=== PATIENT | female | born 1960 | race Caucasian/White ===

== ENCOUNTER → 2018-06-05 | Outpatient (CLI) | payer OTHER | LOC: FIMAGING 15:49 | PROVIDERS: ATTEND Orthopaedic Surgery | DX: Z01.818 Encounter for other preprocedural examination (principal); M17.11 Unilateral primary osteoarthritis, right knee ==

== ENCOUNTER → 2018-06-12 | Outpatient (CLI) | payer OTHER | LOC: FIMAGING 13:43 | PROVIDERS: ATTEND Orthopaedic Surgery | DX: Z01.818 Encounter for other preprocedural examination (principal); M17.11 Unilateral primary osteoarthritis, right knee ==

== ENCOUNTER 2018-06-16 06:11 | Inpatient (IN) | payer OTHER ==
[~2018-06-16 06:11] MED LIST: VANCOMYCIN 1.5 GM in NS 250 ML IV ONE
--- NOTE | 2018-06-16 06:19 | PDHPUP ---
History & Physical Update H&P update statement: This history and physical update is based on an assessment of the patient which was completed after admission or registration (within 24 hours), but prior to the surgery/procedure. H&P update: no change in patient's condition since H&P completed
--- NOTE | 2018-06-16 06:20 | PDIAF ---
- Diagnosis Diagnosis: right knee djd Code Status: Full Code - Medication Management Discharge Medications: electronically signed and located in the Home Medication List. - Orders Services needed: Home Care, Physical Therapy Home Care Face to Face: I certify that this patient was under my care and that I had the required lgdw-pj-vrzj encounter meeting the encounter requirements on the discharge day. My findings support the fact that the patient is homebound as defined in Home Care Face to Face Continued: CMS Chapter 7 Medicare Benefits Manual 30.1.1 , The condition of the patient is such that there exists a normal inability to leave home and consequently, leaving home would require a considerable and taxing effort. Diet Recommendation: no restrictions on diet Diet Texture: Regular Texture Diet Additional Instructions: TOTAL JOINT ARTHROPLASTY DISCHARGE INSTRUCTIONS 1. Your surgeon follows the [facility] protocol for reducing your risk of DVT (blood clots) following surgery. Medication will be ordered to prevent blood clots. A sudden increase in calf pain and/or swelling could indicate a blood clot in your leg. If this occurs, please call your surgeon or his/her facility assistant. An ultrasound of the leg may be necessary to diagnose a blood clot. If you have conditions that make you a higher risk for blood clots, your surgeon may use more aggressive ways to prevent them. Notify your surgeon if you think you are a high risk for blood clots. 2. Wear your white surgical stockings (AMBERLY hose) for 2 weeks. This decreases your swelling and may help prevent blood clots. It is ok to remove AMBERLY hose at night time to give your legs a break. 3. Swelling and bruising in the surgical leg is common. If you feel that it is excessive, please notify your surgeon. 4. Elevate your surgical leg with the ankle above the hip several times every day. Please keep the leg straight when you elevate by putting pillows under your foot. Do not put pillows under your knee. This will make being able to fully straighten more difficult. This is uncomfortable, but try to do it as much as possible. 5. For total knee replacements use compressive wrap on your knee for 3-5 days after surgery, then you can discontinue it. 6. Use a walker or crutches for 1-2 weeks. Progress your weight-bearing as tolerated. You may start to use a cane when you feel stable and safe. 7. You will receive physical therapy instructions in the hospital. Continue those exercises at home. There are additional exercises in the total joint booklet you were given before surgery. Outpatient physical therapy will begin 7- 10 days after surgery. Please schedule this in advance. 8. Use ice on your knee at least 3-5 times every day for 30 minutes. This helps reduce pain and swelling. Also use it at night before falling asleep. 9. Leave your surgical dressing in place for 2 weeks. Your dressing is water resistant, but not waterproof. Cover it with Saran Wrap or Ojyxc-g-Gqvs before showering. You may shower as soon as you feel safe entering a shower. If you notice bleeding from your incision 2 or 3 days after surgery, please notify your surgeon. 10. Due to narcotics, decreased activity and altered diet, most patients experience constipation after surgery. Use iqry-nsw-korekah stool softeners while you are on narcotics. 11. You may drive a car when you are comfortable bearing weight, have good muscular control of your leg and are off narcotics. This usually occurs 2-4 weeks after surgery, depending on which leg was operated on. 12. If there are questions not addressed here, please refer the [facility] book given for more information. If you still have questions, please contact your surgeon s office. 13. If you have a life-threatening emergency, please call 911 and go to the emergency room immediately. For non-life threatening emergencies, please call your physicians office for advice before going to the emergency room. - Follow Up Care Current Providers and Referrals: Doctor Not,On Staff, [Primary Care Provider] - Rodri Yoder MD [Medical Doctor] -
[2018-06-16] MEDS ORDERED: FAMOTIDINE 20 MG TAB PO ONE (06:48)
[2018-06-16] MEDS ORDERED: ACETAMINOPHEN 325 MG TAB PO ONE (06:48)
[2018-06-16] MEDS ORDERED: LR 1,000 ML IV ONE (06:50)
[2018-06-16] MEDS ORDERED: THROMBIN (BOVINE) 5,000 UNIT VIAL TP ONE (07:31)
[2018-06-16] MEDS ORDERED: CALCIUM CHLORIDE 1 GM/10 ML INJ ONE (07:31)
[2018-06-16] MEDS ORDERED: ceFAZolin 1 GM/5 ML SYR ONE (07:32)
[2018-06-16] MEDS ORDERED: MIDAZOLAM 2 MG/2 ML VIAL IVP ONE (08:17)
--- NOTE | 2018-06-16 08:17 | PDANEPAE ---
ANE Past Medical History - Cardiovascular History Hx Hypertension: No Hx Arrhythmias: No Hx Chest Pain: No Hx Coronary Artery / Peripheral Vascular Disease: No Hx CHF / Valvular Disease: No Hx Palpitations: No - Pulmonary History Hx COPD: No Hx Asthma/Reactive Airway Disease: No Hx Recent Upper Respiratory Infection: No Hx Oxygen in Use at Home: No Hx Sleep Apnea: No Sleep Apnea Screening Result - Last Documented: Negative - Neurologic History Hx Cerebrovascular Accident: No Hx Seizures: No Hx Dementia: No - Endocrine History Hx Diabetes: No Hypothyroid: No Hyperthyroid: No Obesity: severe - Renal History Hx Renal Disorders: No - Liver History Hx Hepatic Disorders: No - Neurological & Psychiatric Hx Hx Neurological and Psychiatric Disorders: No - Cancer History Hx Cancer: No - Congenital Disorder History Hx Congenital Disorders: No - GI History Hx Gastrointestinal Disorders: No - Chronic Pain History Chronic Pain: Yes (R KNEE) - Surgical History Prior Surgeries: TONSILLECTOMY ANE Review of Systems Review of Systems: - Exercise capacity METS (RN): 4 METS ANE Patient History - Allergies Allergies/Adverse Reactions: albuterol Allergy (Verified 05/14/18 11:44) heart races Penicillins Allergy (Verified 05/14/18 11:44) Other-Enter Comments prednisone Allergy (Verified 05/14/18 11:44) heart race - Home Medications Home Medications: Ascorbic Acid [Vitamin C 500 mg (*)] 500 mg PO DAILY 05/14/18 [Last Taken 1 Week Ago ~06/09/18] Aspirin [Aspirin 325 mg (*)] 325 mg PO DAILY PRN 05/14/18 [Last Taken 1 Week Ago ~06/09/18] Cholecalciferol Vit D3 [Vitamin D3 (*)] 1,000 units PO DAILY 05/14/18 [Last Taken 1 Week Ago ~06/09/18] Herbals/Supplements -Info Only 1 ea PO DAILY 05/14/18 [Last Taken 1 Week Ago ~] Thiamine HCl [Vitamin B-1 100mg (OTC)] 100 mg PO DAILY 05/14/18 [Last Taken 1 Week Ago ~06/09/18] - NPO status NPO Since - Liquids (Date): 06/16/18 NPO Since - Liquids (Time): 05:00 NPO Since - Solids (Date): 06/15/18 NPO Since - Solids (Time): 17:00 - Smoking Hx Smoking Status: Never smoked - Family Anes Hx Family Hx Anesthesia Complications: NONE ANE Labs/Vital Signs - Vital Signs Blood Pressure: 116/89 Heart Rate: 85 Respiratory Rate: 18 O2 Sat (%): 94 Height: 160.02 cm Weight: 99.79 kg ANE Physical Exam - Airway Neck exam: decreased ROM Mallampati Score: Class 2 Mouth exam: normal dental/mouth exam - Pulmonary Pulmonary: no respiratory distress - Cardiovascular Cardiovascular: regular rate and rhythym - ASA Status ASA Status: II ANE Anesthesia Plan Anesthesia Plan: spinal Regional Anesthesia: adductor canal FNB
[2018-06-16] MEDS ORDERED: BUPIVACAINE/DEXTROSE 7.5MG/ML 2 ML SPINAL AMP SP ONE (08:30)
[2018-06-16] MEDS ORDERED: ROPIVACAINE 0.2% 80 MG, EPINEPHrine 0.2 MG, KETOROLAC TROMETHAMINE 30 MG, morphINE 10 M... IU ONE (08:30)
[2018-06-16] MEDS ORDERED: fentaNYL 100 MCG/2 ML INJ ONE (08:30)
[2018-06-16] MEDS ORDERED: TRANEXAMIC ACID 2,000 MG in NS 100 ML IV ONE (08:30)
[2018-06-16] MEDS ORDERED: TRANEXAMIC ACID 1,000 MG in NS 100 ML IV ONE (08:30)
[2018-06-16] MEDS ORDERED: PROPOFOL/EMULSION 500 MG/50 ML BOTTLE IV ONE (08:30)
[2018-06-16] MEDS ORDERED: LIDOCAINE 2% 5 ML SDV ONE (08:30)
[2018-06-16] MEDS ORDERED: VANCOMYCIN PHARMACY TO DOSE MISC ONE (08:30)
[2018-06-16] MEDS ORDERED: PROPOFOL 200 MG/20 ML VIAL ONE (09:14)
[2018-06-16] MEDS ORDERED: MIDAZOLAM 2 MG/2 ML VIAL ONE (09:14)
[2018-06-16] MEDS ORDERED: PROMETHAZINE HCL 25 MG/ML INJ IVP PRN (09:52)
[2018-06-16] MEDS ORDERED: diphenhydrAMINE 25 MG CAP PO PRN (09:52)
[2018-06-16] MEDS ORDERED: LACTULOSE 20 GM/30 ML UDCUP PO PRN (09:52)
[2018-06-16] MEDS ORDERED: PROMETHAZINE HCL 25 MG SUPPR PR PRN (09:52)
[2018-06-16] MEDS ORDERED: POLYETHYLENE GLYCOL 3350 17 GM PKT PO PRN (09:52)
[2018-06-16] MEDS ORDERED: CYCLOBENZAPRINE 10 MG TAB PO PRN (09:52)
[2018-06-16] MEDS ORDERED: TEMAZEPAM 15 MG CAP PO PRN (09:52)
[2018-06-16] MEDS ORDERED: DIPHENOXYLATE/ATROPINE LOMOTIL 1 TAB PO PRN (09:52)
[2018-06-16] MEDS ORDERED: METOCLOPRAMIDE 10 MG/2 ML VIAL IVP PRN (09:52)
[2018-06-16] MEDS ORDERED: ONDANSETRON DISINTEGRATING 4 MG TAB PO PRN (09:52)
[2018-06-16] MEDS ORDERED: MAGNESIUM HYDROXIDE 30 ML UDCUP PO PRN (09:52)
[2018-06-16] MEDS ORDERED: BISACODYL 10 MG SUPP PR PRN (09:52)
[2018-06-16] MEDS ORDERED: ONDANSETRON 4 MG/2 ML VIAL IVP PRN ×2 (09:52→09:53)
[2018-06-16] MEDS ORDERED: fentaNYL 100 MCG/2 ML INJ IVP PRN (09:53)
[2018-06-16] MEDS ORDERED: PHENYLEPHRINE HCL 100 MCG/ML SYR IVP PRN (09:53)
[2018-06-16] MEDS ORDERED: LR 500 ML IV PRN (09:53)
[2018-06-16] MEDS ORDERED: NALOXONE HCL 0.4 MG/ML INJ IVP PRN (09:53)
--- NOTE | 2018-06-16 09:54 | POSTOPPROG ---
Post Op Note Date of Operation: 06/16/18 Surgeon: Rodri Yoder Ocean Forwarder: juan Anesthesiologist: juanjose Anesthesia: Spinal Pre-op Diagnosis: right knee djd Post-op Diagnosis: same Indication: same Procedure: right tka Inf/Abcess present in the surg proc area at time of surgery?: No Depth: Deep Incisional (Fascial) EBL: 50-100
[2018-06-16] MEDS ORDERED: LR 1,000 ML IV SCH (10:00)
--- NOTE | 2018-06-16 10:32 | POSTANESTH ---
Post Anesthetic Evaluation Cardiovascular Status: Normal, Stable Respiratory Status: Normal, Stable Level of Consciousness/Mental Status: Can Participate in Eval Pain Control: Adequate, Prn Tx Ordered Nausea/Vomiting Control: Adequate, Prn Tx Ordered Complications Possibly Related to Anesthesia: None Noted
--- NOTE | 2018-06-16 10:50 | PDMN ---
Medical Necessity Medical [place] [facility] [place] OP: R TKA -- ROSHAN FOR CPT 63418 DONE INPT
[2018-06-16] MEDS: ACETAMINOPHEN 325 MG TAB PO SCH ×3 (13:52→23:37)
[2018-06-16] MEDS: TRANEXAMIC ACID 650 MG TAB PO SCH ×2 (15:06→21:46)
[2018-06-16] MEDS: oxyCODONE IR 5 MG TAB PO PRN ×3 (17:12→23:47)
[2018-06-16] MEDS ORDERED: VANCOMYCIN 1.5 GM in NS 250 ML IV ONE (19:30)
[2018-06-16] MEDS: FAMOTIDINE 20 MG TAB PO SCH (20:08)
[2018-06-16] MEDS: SENNOSIDES/DOCUSATE SODIUM TAB PO SCH (20:08)
[2018-06-16] MEDS: ASPIRIN 325 MG TAB PO SCH (21:46)
[2018-06-17] MEDS: ACETAMINOPHEN 325 MG TAB PO SCH ×2 (05:56→12:04)
[2018-06-17] MEDS: TRANEXAMIC ACID 650 MG TAB PO SCH (05:57)
[2018-06-17] MEDS: oxyCODONE IR 5 MG TAB PO PRN ×2 (06:09→12:04)
--- NOTE | 2018-06-17 07:08 | SOAPPROG ---
SOAP Progress Note Assessment/Plan: Assessment: s/p right tka Plan: stable d/c home once cleared by pt ice prn dvt precautions f/u at two weeks 06/17/18 07:06 Subjective: no cp or sob no nausea Objective: Vital Signs Temp Pulse Resp BP Pulse Ox 36.8 C 68 17 124/95 H 96 06/17/18 04:00 06/17/18 04:00 06/17/18 04:00 06/17/18 04:00 06/17/18 04:00 Laboratory Results 06/17/18 04:26 06/16/18 12:19 06/16/18 06/17/18 06/18/18 05:59 05:59 05:59 Intake Total 1365 Output Total 1550 Balance -185 dressing intact intact pf,df, ehl toes warm and pink neg homans caroline xrays stable anatomic alignemrnet ICD10 Worksheet Patient Problems: Problems Problem Status Onset Arthritis of knee Acute - ICD10 Problem Qualifiers (1) Arthritis of knee
--- NOTE | 2018-06-17 07:20 | PDIAF ---
- Diagnosis Diagnosis: right knee djd Code Status: Full Code - Medication Management Discharge Medications: electronically signed and located in the Home Medication List. - Orders Services needed: Home Care, Physical Therapy Home Care Face to Face: I certify that this patient was under my care and that I had the required ihac-yp-ptca encounter meeting the encounter requirements on the discharge day. My findings support the fact that the patient is homebound as defined in Home Care Face to Face Continued: CMS Chapter 7 Medicare Benefits Manual 30.1.1 , The condition of the patient is such that there exists a normal inability to leave home and consequently, leaving home would require a considerable and taxing effort. Diet Recommendation: no restrictions on diet Diet Texture: Regular Texture Diet Additional Instructions: TOTAL JOINT ARTHROPLASTY DISCHARGE INSTRUCTIONS 1. [facility] surgeon [facility] protocol for reducing your risk of DVT (blood clots) following surgery. Medication will be ordered to prevent blood clots. A sudden increase in calf pain and/or swelling could indicate a blood clot in your leg. If this occurs, please call your surgeon or his/her outreach assistant. An ultrasound of the leg may be necessary to diagnose a blood clot. If you have conditions that make you a higher risk for blood clots, your surgeon may use more aggressive ways to prevent them. Notify your surgeon if you think you are a high risk for blood clots. 2. Wear your white surgical stockings (AMBERLY hose) for 2 weeks. This decreases your swelling and may help prevent blood clots. It is ok to remove AMBERLY hose at night time to give your legs a break. 3. Swelling and bruising in the surgical leg is common. If you feel that it is excessive, please notify your surgeon. 4. Elevate your surgical leg with the ankle above the hip several times every day. Please keep the leg straight when you elevate by putting pillows under your foot. Do not put pillows under your knee. This will make being able to fully straighten more difficult. This is uncomfortable, but try to do it as much as possible. 5. For total knee replacements use compressive wrap on your knee for 3-5 days after surgery, then you can discontinue it. 6. Use a walker or crutches for 1-2 weeks. Progress your weight-bearing as tolerated. You may start to use a cane when you feel stable and safe. 7. You will receive physical therapy instructions in the hospital. Continue those exercises at home. There are additional exercises in the total joint booklet you were given before surgery. Outpatient physical therapy will begin 7- 10 days after surgery. Please schedule this in advance. 8. Use ice on your knee at least 3-5 times every day for 30 minutes. This helps reduce pain and swelling. Also use it at night before falling asleep. 9. Leave your surgical dressing in place for 2 weeks. Your dressing is water resistant, but not waterproof. Cover it with Saran Wrap or Rchfd-y-Fsua before showering. You may shower as soon as you feel safe entering a shower. If you notice bleeding from your incision 2 or 3 days after surgery, please notify your surgeon. 10. Due to narcotics, decreased activity and altered diet, most patients experience constipation after surgery. Use mqan-szi-mbzxwql stool softeners while you are on narcotics. 11. You may drive a car when you are comfortable bearing weight, have good muscular control of your leg and are off narcotics. This usually occurs 2-4 weeks after surgery, depending on which leg was operated on. 12. If there are questions not addressed here, please refer the [facility] book given for more information. If you still have questions, please contact your surgeon s office. 13. If you have a life-threatening emergency, please call 911 and go to the emergency room immediately. For non-life threatening emergencies, please call your physicians office for advice before going to the emergency room. - Follow Up Care Current Providers and Referrals: Doctor Not,On Staff, [Primary Care Provider] - Rodri Yoder MD [Medical Doctor] -
[2018-06-17 08:27] VITALS: BP 118/83
[2018-06-17] MEDS: FAMOTIDINE 20 MG TAB PO SCH (08:30)
[2018-06-17] MEDS: SENNOSIDES/DOCUSATE SODIUM TAB PO SCH (08:30)
[2018-06-17] MEDS: ASPIRIN 325 MG TAB PO SCH (08:30)
--- NOTE | 2018-06-17 10:30 | ASMTLACE ---
LACE Length of stay for Answers: 2 days current admission Acuity / Level of Answers: Yes Care: Did the patient have an inpatient admission? Comorbidities - select Answers: Opioid dependence all that apply / Chronic pain # of Emergency department Answers: 0 visits in the last 6 months Score: 9 Date Signed: 06/17/2018 10:29 AM Electronically Signed By:LUIS Moore
--- NOTE | 2018-06-17 10:32 | ASMTCMCOM ---
CM Note CM Note Notes: Pt had planned OA of knee. Pt medically stable for d/c with [facility] PT. Orders to be obtained via [employer]. Pt address/phone verified. Pt has support of . Date Signed: 06/17/2018 10:31 AM Electronically Signed By:LUIS Moore
--- NOTE | 2018-06-17 11:10 | GOP ---
DATE OF OPERATION: 06/16/2018 SURGEON: Rodri Yoder MD PREOPERATIVE DIAGNOSIS: Right knee degenerative joint disease. POSTOPERATIVE DIAGNOSIS: Right knee degenerative joint disease. PROCEDURE PERFORMED: Right total knee arthroplasty. FINDINGS: SPECIMENS: Sent to Pathology, the bony cuts. INDICATIONS: This patient is a 58-year-old woman with end-stage arthritis to her right knee. Clinic al and radiographic features are consistent with this. She has failed conservative measures. I have recommended total knee replacement. She understood the risks, benefits, alternatives, and wished to proceed. The consent was signed and placed in the patient's chart. DESCRIPTION OF PROCEDURE: Patient was identified in the preanesthesia area. The right knee clearly demarcated as the operative site with indelible marker. She was given 2 g of Ancef intravenously en route to the operative suite. In the OR, spinal anesthetic was placed. Attention was turned to the right knee, which was sterilely prepped and draped in usual fashion. A tourniquet was applied to the upper thigh. Appropriate time-out procedure was carried out. The limb was exsanguinated with an Es march bandage, and tourniquet inflated to 275 mmHg. A standard anterior midline incision was made. Thick subcutaneous flaps were elevated, followed by m edial parapatellar arthrotomy. Subperiosteal elevation was carried out to the mid coronal plane and retractors were placed protecting the medial and lateral collateral structures. The knee demonstrate d tricompartmental arthritis. Two pins were then placed from the medial to lateral femur. Femoral a nd tibial checkpoints were then placed. Tibial pins were then placed in a percutaneous incision over the mid tibia. The femoral and tibial reference arrays were affixed. All bony landmarks were enter ed in the computer in standard fashion. The marginal osteophytes were sharply excised. Using the MA KOplasty software, the knee was balanced through the flexion-extension arc. Resections were made for a size 4 tibia, size 4 femur. Trial reduction was carried out over a 4 x 9 mm polyethylene spacer. This allowed full extension of the knee without hyperextension. No instability to varus or valgus s tress and flexion to 120 degrees of flexion. The trial components were withdrawn. The tibial and fe moral components were press-fit in standard position and technique. The 9 mm polyethylene spacer was placed and confirmed to be fully seated. The knee was brought into extension. The patella was ever jeanette, cut in a freehand cutting technique. Drill holes were made for a size 32 mm patella. The ferreira la was then press-fit in position. The knee cap tracked centrally through the flexion-extension arc. The wound was copiously irrigated. The capsular tissue was injected with a joint cocktail of ropiv acaine, Toradol, and epinephrine. The medial parapatellar arthrotomy closed using #1 Ethibond suture . The knee instilled with platelet-rich plasma. Subcutaneous tissue closed using 2-0 Monocryl and s kin kiko. A sterile dressing was applied. The patient was awakened, extubated, taken to recovery room in good, stable condition. TOTAL TOURNIQUET TIME: 50 minutes. COMPLICATIONS: None. IMPLANTS: [place] [employer] posterior-stabilized femoral component size 4, size 4 tibia, 4 x 9 mm po lyethylene spacer, 32 mm patella. DISPOSITION: To the recovery room, then floor. /[id number]/MODL
--- NOTE | 2018-06-17 11:25 | GDS ---
ADMIT DIAGNOSIS: Right knee degenerative joint disease. DISCHARGE DIAGNOSIS: Right knee degenerative joint disease. PROCEDURE: Right total knee arthroplasty. HISTORY OF PRESENT ILLNESS: The patient is a 58-year-old woman who presents for elective total knee replacement. HOSPITAL COURSE: The patient was admitted overnight after uncomplicated total knee arthroplasty. Andrea bianchi tolerated the procedure well. At the time of discharge, she is tolerating an oral diet. Pain was well controlled on oral medicines. She is voiding without difficulty. Dressing is clean, dry, and i ntact. Negative Homans bilaterally. X-rays are stable, with anatomic alignment. DISCHARGE ACTIVITY: Weightbearing as tolerated. Range of motion as tolerated. Keep the dressing in tact. Seek attention for increasing redness, swelling, drainage, discharge. DISCHARGE MEDICATIONS: Oxycodone 5 mg 1-2 every 6 hours p.r.n. pain and aspirin 325 mg p.o. daily. Follow up in 2 weeks. /[id number]/MODL
--- NOTE | 2018-06-17 14:42 | ASDISCHSUM ---
Discharge Information Plan Status:Home with Home Health Medically Cleared to Leave: Discharge Date:06/17/2018 12:24 PM CM D/C Disposition: ADT D/C Disposition:Home Health Service Projected Discharge Date:06/17/2018 11:00 AM Transportation at D/C: Discharge Delay Reason: Follow-Up Date:06/17/2018 11:00 AM Discharge Slot: Final Diagnosis: Placement Information Referral Type:*Home Health Care Services Referral ID:[id number] Provider Name:[facility] Address 1:[address] Address 2: City:[place] Selection Factors: State:[place] Patient Contact Information Contact Name:HENRRY Relationship: Address: Home Phone: City: [facility] Phone: [facility] Code: Email: Financial Information Financial Class:Bablic Primary Plan Desc:MELISSA Georges HMO OPEN ACC LOCAL Primary Plan Number:[id number] Secondary Plan Desc: Secondary Plan Number: Assessment Information LACE LACE Length of stay for Answers: 2 days current admission Acuity / Level of Answers: Yes Care: Did the patient have an inpatient admission? Comorbidities - select Answers: Opioid dependence all that apply / Chronic pain # of Emergency department Answers: 0 visits in the last 6 months Score: 9 Date Signed: 06/17/2018 10:29 AM Electronically Signed By:LUIS Moore [facility] CM Progress Note CM Note CM Note Notes: Pt had planned OA of knee. Pt medically stable for d/c with [facility] PT. Orders to be obtained via [facility]. Pt address/phone verified. Pt has support of . Date Signed: 06/17/2018 10:31 AM Electronically Signed By:LUIS Moore Intervention Information
== END 2018-06-17 12:24 | disposition home health service (06) | DRG 470 ==
LOC: F3N 06:11
PROVIDERS: ADMIT Orthopaedic Surgery; ATTEND Orthopaedic Surgery
PROC: 0SRC0JA Replacement of Right Knee Joint with Synthetic Substitute, Uncemented, Open Approach (ICD-10-PCS; principal; 2018-06-16 08:30)
PROC: 8E0Y0CZ Robotic Assisted Procedure of Lower Extremity, Open Approach (ICD-10-PCS; principal; 2018-06-16 08:30)
DX: M17.11 Unilateral primary osteoarthritis, right knee (principal)
CPT/HCPCS: 97116-GP; 97161-GP; 97165-GO; 97530-GP; 97535-GO; J0171; J1885; J2250; J2270; J2704; J2795; J3010; J3370

== ENCOUNTER → 2018-07-29 | Outpatient (CLI) | payer OTHER | LOC: BMCIMAGING 14:43 | PROVIDERS: ATTEND Physician Assistant | DX: Z09 Encounter for follow-up examination after completed treatment for conditions other than malignant neoplasm (principal); Z96.651 Presence of right artificial knee joint ==

== ENCOUNTER → 2018-09-10 | Outpatient (CLI) | payer OTHER | LOC: BMCIMAGING 14:18 | PROVIDERS: ATTEND Orthopaedic Surgery | DX: Z09 Encounter for follow-up examination after completed treatment for conditions other than malignant neoplasm (principal); Z96.651 Presence of right artificial knee joint ==